=== PATIENT | male | born 1990 | race Caucasian/White ===

== ENCOUNTER 2016-10-11 14:12 | Emergency (ER) | payer OTHER ==
[~2016-10-11] VITALS: Ht 175.3 cm; Wt 81.7 kg
[~2016-10-11 14:12] MED LIST: AMOXICILLIN875 MG PO; CEPHALEXIN500 MG PO; IBUPROFEN400 MG PO; LEVAQUIN750 MG PO; NAPROSYN500 MG PO; NORCO 5-325 TA1 EACH PO; ULTRAM50 MG PO; ZOFRAN ODT8 MG PO
== END 2016-10-11 15:52 | disposition home or self-care (01) ==
LOC: ED 14:12
DX: F43.20 Adjustment disorder, unspecified (principal); I10 Essential (primary) hypertension
CPT/HCPCS: 80053; 80176; 81001; 84443; 85025; 99283; G0480

== ENCOUNTER 2016-10-17 08:57 | Emergency (ER) | payer OTHER ==
[~2016-10-17] VITALS: Ht 175.3 cm; Wt 74.8 kg
[2016-10-17] MEDS ORDERED: TESSALON PERLE100 MG PO (09:53)
[2016-10-17] MEDS ORDERED: ZITHROMAX250 MG PO (09:53)
== END 2016-10-17 10:00 | disposition home or self-care (01) ==
LOC: ED 08:57
DX: J40 Bronchitis, not specified as acute or chronic (principal); I10 Essential (primary) hypertension; F17.200 Nicotine dependence, unspecified, uncomplicated
CPT/HCPCS: 99283

== ENCOUNTER 2017-06-27 10:57 | Emergency (ER) | payer OTHER ==
[~2017-06-27] VITALS: Ht 175.3 cm; Wt 65.8 kg
[~2017-06-27 10:57] MED LIST changes: +TESSALON PERLE100 MG PO; +ZITHROMAX250 MG PO
[2017-06-27] MEDS ORDERED: IMODIUM A-D2 M2 PO (11:08)
[2017-06-27] MEDS ORDERED: LOMOTIL TABLET1 EACH PO (13:35)
[2017-06-27] MEDS ORDERED: ZOFRAN ODT4 MG PO (13:35)
[2017-06-27] MEDS ORDERED: CIPRO500 MG PO (13:35)
== END 2017-06-27 14:30 | disposition home or self-care (01) ==
LOC: ED 10:57
DX: K52.9 Noninfective gastroenteritis and colitis, unspecified (principal); I10 Essential (primary) hypertension; F17.200 Nicotine dependence, unspecified, uncomplicated
CPT/HCPCS: 80053; 81001; 83690; 85025; 96361; 96374; 96375; 99283; J1885; J2405; J7030

== ENCOUNTER 2018-12-14 17:01 | Inpatient (IN) | payer OTHER ==
[~2018-12-14] VITALS: Ht 175.3 cm; Wt 74.8 kg
[~2018-12-14 17:01] MED LIST changes: +CIPRO500 MG PO; +IMODIUM A-D2 M2 PO; +LOMOTIL TABLET1 EACH PO; +ZOFRAN ODT4 MG PO
[2018-12-14] MEDS ORDERED: IBUPROFEN IB200 MG PO (17:16)
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
--- NOTE | 2018-12-14 22:45 | NUR ---
[facility] CULTURE PENDING, PT PLACED IN CONTACT ISOLATION PENDING OUTCOME. PT HAS MONEY IN SAFE. WHILE ASSESSMENT WAS BEING COMPLETED, PT STATED HE SMOKED POT BEFORE HE CAME IN, THOUGHT HE MIGHT HAVE TO BE ADMITTED.
--- NOTE | 2018-12-14 23:01 | NUR ---
PT COMPLAINING OF BURING, PAINFUL DISCOMFORT IN GROIN AREA. MED WITH PRN MED. CRYING, SAYING HE HATES TO BE VULNERABLE, IS ALL ALONE, SUPPORTIVE CONVERSATION GIVEN.
--- NOTE | 2018-12-15 00:19 | NUR ---
CHECKED ON PT. LAYING ON HIS BACK, COVERS ON, RESP EVEN AND UNLABORED @ 20. IV INFUSING PER ORDER.
--- NOTE | 2018-12-15 02:36 | NUR ---
WOKE PT FOR ABX, VITALS, AND TO GET UP USE BATHROOM. STATES HE FEELS LOT BETTER AFTER PAIN MED,HAS BEEN "SLEEPING". HAD 4 BLANKETS ON, REMOVED ALL, TEMP WAS "102." PT WAS SWEATING, STATING HE HOPED HE SWEATED THE "COUGH" AWAY. UP BRUSHING TEETH, WASHED HANDS, FACE, USED THE URINAL. TEMP 100.3.
--- NOTE | 2018-12-15 06:07 | NUR ---
ASSESSMENT DONE. MEDICATION GIVEN (SEE MAR). pt DENIED PAIN AT THIS TIME. STATED "I FEEL FINE, I'M READY TO LEAVE" pt HAD BEEN SWEATING. LINENS CHANGED pt UP TO VOID AND BACK TO BED. WILLIAM RN IN ROOM TO TALK WITH pt. CALL LIGHT WITHIN REACH.
--- NOTE | 2018-12-15 06:08 | NUR ---
pt RESTED ON AND OFF DURING SHIFT. SBA. VOIDING WELL. STATES HE IS READY TO LEAVE. IVF AND ABX. DIAPHORETIC, FEBRILE EARLIER IN SHIFT. USES CALL LIGHT APPROPRIATELY.
--- NOTE | 2018-12-15 07:02 | NUR ---
PT RESTING SUPINE IN BED EYES CLOSED AND RESPIRATIONS EVEN AND UNLABORED. CALL LIGHT AND H2O IN REACH. PT APPEARS TO BE SLEEPIGN COMFORTBLY. BEDSIDE REPORT RECEIVED FROM JULI JONES.
--- NOTE | 2018-12-15 09:15 | NUR ---
PT RESTING IN BED ON RIGHT LATERAL SIDE, RESPIRATIONS EVEN AND UNLABORED. PT STATES "WHEN DDO YOU THINK ILL BE ABLE TO GET OUT OF HERE TODAY"? PT EDUCATED ON IV ABX ORDERED AND THAT HE WOULD LIKELY NOT BE DISCHARGED UNTIL HE CAN BE TRANSITIONED TO ORAL ABX. CALL LIGHT AND H2O IN REACH. NO FURTHER NEEDS/CONCERNS VOICED.
--- NOTE | 2018-12-15 11:17 | NUR ---
Pt states "I really wish I could just smoke a ciggarette." Call light and h2o in reach. PRN po nicotine lozenge provided per pt request -see emar. No further needs or concerns voiced.
[2018-12-15] MEDS ORDERED: DOXYCYCLINE HY100 MG PO (11:39)
--- NOTE | 2018-12-15 11:56 | NUR ---
MED REC COMPLETE
--- NOTE | 2018-12-15 13:10 | NUR ---
IN TO SEE PATIENT, PT STATES "I REALLY WISH I COULD GO HOME TODAY" PT ALERT AND ORIENTED. ASSESSMENT COMPLETED PT DENIES FURTHER NEEDS OR CONCERNS.
--- NOTE | 2018-12-15 14:07 | NUR ---
PT ALERT, ORIENTED AND RESTING IN BED WATCHING TV. GAVE ENCOURAGEMENT, AND NOTICED IV ALARM WAS GOING OFF. EXTENDED A BLESSING AND ALERTED RN RUTHY ABOUT ALARM
--- NOTE | 2018-12-15 14:10 | NUR ---
Met with Panchito in his room for ISATU aguiar. He states he is doing well. Very concerned about his job and [place] and states as soon as he leaves he will go there to fill out paperwork. Let him know we can assist him with whatever he needs. Pt lives with his SO, who is out of town today. States the house is filled with kids and someone will be home. Discussed PCP and he states he just uses the ER. Discussed appropriate use of the ER and let him know about the two walk in clinics [facility]. He states he really needs a DR. Called and set him up with [facility] and Dr. Bautista. Appt. is scheduled for 12/22/18 at 3pm. Gave him the phone number for [facility] transport and informed him he will need to call and schedule ride. Let him know [facility] will transport him for all medical appointments as long as he schedules ahead. He does not drive and plans on walking him. Informed we will get him taxi tickets.
--- NOTE | 2018-12-15 16:30 | EKG ---
[facility] [address] [facility] [place] [address] Signed Sinus tachycardia Possible Left atrial enlargement Rightward axis Borderline ECG No previous ECGs available Confirmed by VANE BAUTISTA DO ([id number]) on 12/15/2018 4:30:01 PM Electronically Signed By: VANE BAUTISTA DO 12/15/18 1630 PATIENT NAME: YASHIRA CIFUENTES EDGAR Electrocardiogram DATE OF : [birth year] PHYSICIAN: VANE BAUTISTA DO REPORT #: [id number] REPORT IS CONFIDENTIAL AND NOT TO BE RELEASED WITHOUT AUTHORIZATION
== END 2018-12-15 15:35 | disposition home or self-care (01) | DRG 872 ==
LOC: ED 17:01 → MS 20:56
PROVIDERS: ADMIT Student in an Organized Health Care Education/Training Program
DX: A41.9 Sepsis, unspecified organism (principal); L03.314 Cellulitis of groin; F17.210 Nicotine dependence, cigarettes, uncomplicated
CPT/HCPCS: 71045; 72193; 93005; 93010; 99285-25; J0690; J0692; J3370; J7030; J7060; J7120; Q9967